=== PATIENT | female | born 1970 | race Hispanic/Latino ===

== ENCOUNTER → 2019-12-15 | Outpatient (CLI) | payer BC ==
[~2019-12-15] MED LIST: CEFAZOLIN SODIUM 1 GM VIAL IVP SCH
[2019-12-15 10:28] LABS: BASOPHILS % (AUTO) 0.8 % (0.0-5.0); EOSINOPHILS % (AUTO) 4.4 % (0.0-8.0); HEMATOCRIT 40.9 % (36-48); LYMPHOCYTES % (AUTO) 38.1 % (21.0-51.0); MEAN CORPUSCULAR HEMOGLOBIN 29.2 pg (27.0-33.0); MEAN CORPUSCULAR HGB CONC 32.5 g/dL (32.0-36.0); MEAN CORPUSCULAR VOLUME 89.7 fL (79-99); MONOCYTES % (AUTO) 7.3 % (3.0-13.0); NEUTROPHILS % (AUTO) 49.1 % (40.0-77.0); PLATELET COUNT (AUTO) 247 K/uL (130-400); RED BLOOD CELL COUNT(AUTO) 4.56 MIL/uL (4.00-5.50); RED CELL DISTRIBUTION WIDTH 12.8 % (11.0-15.5); WHITE BLOOD COUNT (AUTO) 5.9 K/uL (4.8-10.8)
[2019-12-15 10:39] LABS: APPEARANCE,URINE Cloudy (CLEAR); BILIRUBIN,URINE Small (NEGATIVE); COLOR,URINE Dark Yellow (YELLOW); GLUCOSE, URINE (UA) Negative (NEGATIVE); INR 0.97 (0.85-1.15); KETONES,URINE Trace mg/dL (NEGATIVE); LEUKOCYTE ESTERASE ,URINE Negative (NEGATIVE); NITRATE,URINE Negative (NEGATIVE); OCCULT BLOOD,URINE Negative (NEGATIVE); PARTIAL THROMBOPLASTIN TIME 32.1 SEC (26.3-35.5); PROTEIN,URINE Trace mg/dL (NEGATIVE); PROTHROMBIN TIME 10.5 SEC (9.6-11.6)
[2019-12-15 10:50] LABS: BACTERIA,URINE Rare /HPF (None Seen); HYALINE CASTS, URINE 0-1 /LPF (0-1 /LPF); MUCUS,URINE Moderate LPF (None Seen); RBC,URINE 0-1 /HPF (0-1); SQUAMOUS EPITHELIAL CELL,UR 0-2 /HPF (0-2); WBC,URINE 0-1 /HPF (0-1)
[2019-12-15 11:37] LABS: CREATININE 0.9 mg/dL (0.5-1.5); POTASSIUM 4.7 mmol/L (3.5-5.1)
--- NOTE | 2019-12-19 12:04 | NUR ---
INFECTION CONTROL-POSITIVE COVID ON 12/15/19. NOTIFIED PT ABOUT RESULT AND QUARANTINE PROCESS. LIVES WITH SISTER. PT HAD QUESTIONS ABOUT RE-REGISTERING AND GETTING A LETTER OR COPY OF RESULT. INFORMED HER TO CONTACT DAY PT REG. RE-REGISTERING PROCESS AND MEDICAL RECORDS FOR A COPY OF HER REPORT. *ADDED TO FACESHEET
== END | disposition home or self-care (01) ==
LOC: DAH 10:00 → EDSTATUS 11:00
PROVIDERS: ATTEND Orthopaedic Surgery
DX: U07.1 COVID-19 (principal); M25.551 Pain in right hip; M16.11 Unilateral primary osteoarthritis, right hip
CPT/HCPCS: 36415; 80048; 81001; 84703; 85025; 85610; 85730; 87641; U0003; J0690

== ENCOUNTER 2020-02-12 11:00 | Inpatient (IN) | payer BC ==
[~2020-02-12] VITALS: Ht 157.5 cm; Wt 106.6 kg
[2020-02-12 12:25] LABS: BASOPHILS % (AUTO) 0.8 % (0.0-5.0); EOSINOPHILS % (AUTO) 2.5 % (0.0-8.0); LYMPHOCYTES % (AUTO) 30.2 % (21.0-51.0); MEAN CORPUSCULAR HEMOGLOBIN 29.5 pg (27.0-33.0); MEAN CORPUSCULAR VOLUME 89.5 fL (79-99); MONOCYTES % (AUTO) 5.9 % (3.0-13.0); NEUTROPHILS % (AUTO) 60.3 % (40.0-77.0); PLATELET COUNT (AUTO) 266 K/uL (130-400); RED BLOOD CELL COUNT(AUTO) 4.47 MIL/uL (4.00-5.50); RED CELL DISTRIBUTION WIDTH 12.3 % (11.0-15.5); WHITE BLOOD COUNT (AUTO) 6.3 K/uL (4.8-10.8)
[2020-02-12 12:31] LABS: CREATININE 0.7 mg/dL (0.5-1.5); INR 0.93 (0.85-1.15); POTASSIUM 4.2 mmol/L (3.5-5.1); PROTHROMBIN TIME 10.1 SEC (9.6-11.6)
[2020-02-12 13:32] LABS: APPEARANCE,URINE Clear (CLEAR); BILIRUBIN,URINE Negative (NEGATIVE); COLOR,URINE Yellow (YELLOW); GLUCOSE, URINE (UA) Negative (NEGATIVE); KETONES,URINE Negative (NEGATIVE); LEUKOCYTE ESTERASE ,URINE Negative (NEGATIVE); NITRATE,URINE Negative (NEGATIVE); OCCULT BLOOD,URINE Negative (NEGATIVE); PROTEIN,URINE Negative (NEGATIVE); UROBILINOGEN,URINE 0.2 mg/dL (0.2-1.0)
[2020-02-16] MEDS ORDERED: ACET1TAB25 PO (09:09)
[2020-02-16] MEDS ORDERED: ZOLP5TAB8 PO (09:12)
[2020-02-16] MEDS ORDERED: CELE200C PO (09:12)
[2020-02-16] MEDS ORDERED: ESCI10TA54 PO (09:12)
[2020-02-19] VITALS (17 sets, daily range): BP systolic 105–164; BP diastolic 63–102
[2020-02-19] MEDS: CEFAZOLIN SODIUM 1 GM VIAL IVP SCH ×3 (09:45→20:23)
--- NOTE | 2020-02-19 09:45 | NUR ---
preop pt arrived via w/c pt in no distress at this time. pt oriented to bed and call light. will continue to monitor pt.
[2020-02-19] MEDS ORDERED: TRANEXAMIC ACID 1000MG/10ML ONE ×2 (12:28→17:13)
[2020-02-19] MEDS ORDERED: CEFAZOLIN SODIUM 1 GM VIAL ONE ×2 (12:28→20:23)
[2020-02-19] MEDS ORDERED: SUCCINYLCHOLINE CHLORIDE 20 MG/ML 10 ML VIAL ONE (13:08)
[2020-02-19] MEDS ORDERED: MIDAZOLAM HCL 1 MG/ML 2ML VIAL ONE (13:08)
[2020-02-19] MEDS ORDERED: PROPOFOL 10 MG/ML 20ML VIAL IV ONE (13:08)
[2020-02-19] MEDS ORDERED: LIDOCAINE PF 2% 5ML ABBOJECT ONE (13:08)
[2020-02-19] MEDS ORDERED: ROPIVACAINE 0.5% 5MG/ML 30ML IJ ONE (13:22)
[2020-02-19] MEDS ORDERED: ROCURONIUM 10MG/1ML SYR 10 MG/ML ML ONE ×3 (13:30→16:22)
[2020-02-19] MEDS ORDERED: EPHEDRINE SULFATE 50 MG/ML AMPULE ONE (14:08)
[2020-02-19] MEDS ORDERED: TRANEXAMIC ACID 1000MG/10ML IV ONE (14:20)
[2020-02-19] MEDS ORDERED: CEFAZOLIN SODIUM 1 GM VIAL IRRIG ONE (14:45)
[2020-02-19] MEDS ORDERED: FENTANYL CITRATE PF 50 MCG/1 ML 2ML VIAL ONE (15:08)
[2020-02-19] MEDS ORDERED: NEOSTIGMINE 5MG/5ML SYR IV ONE (16:04)
[2020-02-19] MEDS ORDERED: ONDANSETRON HCL 4 MG/2 ML VIAL ONE (16:04)
[2020-02-19] MEDS ORDERED: GLYCOPYRROLATE 1 MG/5 ML SYRINGE ONE (16:04)
[2020-02-19] MEDS ORDERED: OXYCODONE HCL 5 MG TAB PO PRN (16:15)
[2020-02-19] MEDS ORDERED: POTASSIUM CHLORIDE 20MEQ/100ML 100 ML IV PRN (16:15)
[2020-02-19] MEDS: ACETAMINOPHEN EXTRA STRENGTH 500 MG TABLET PO SCH ×2 (16:15→23:15)
[2020-02-19] MEDS ORDERED: FERROUS FUMARATE 324 MG TABLET PO PRN (16:15)
[2020-02-19] MEDS ORDERED: TEMAZEPAM 15 MG CAPSULE PO PRN (16:15)
[2020-02-19] MEDS ORDERED: POTASSIUM CHLORIDE 10% ELIXIR 20 MEQ/15 ML UDCUP PO PRN (16:15)
[2020-02-19] MEDS ORDERED: TRAMADOL HCL 50 MG TABLET PO PRN (16:15)
[2020-02-19] MEDS ORDERED: ONDANSETRON HCL 4 MG/2 ML VIAL IVP PRN (16:15)
[2020-02-19] MEDS ORDERED: POTASSIUM CHLORIDE 20 MEQ ERTAB PO PRN (16:15)
[2020-02-19] MEDS ORDERED: LIDOCAINE HCL-MPF 1% 2ML VIAL IV PRN (16:15)
[2020-02-19] MEDS ORDERED: DiphenhydrAMINE HCL 50 MG/ML VIAL IVP PRN (16:15)
[2020-02-19] MEDS ORDERED: MEPERIDINE-PF 25 MG/ML SYG ONE ×2 (17:14→17:32)
--- NOTE | 2020-02-19 17:38 | NUR ---
CM NOTE/MELVIN UNABLE TO MEET WITH PATIENT IN ROOM, NEXT OF KIN CALLED, SHILOH COWART. MELVIN COMPLETED FOR [facility] AND ANY DME IN NETWORK. PER FATHER, PATIENT LIVES ALONE AND OPEN TO PHYSICAL THERAPY AT FACILITY BUT NOT A SNF. FATHER EDUCATED ON INSURANCE/PT EVALUATION AND HOW THAT COULD PLAY A ROLE IN DISCHARGE PLANNING. CM TO FOLLOW UP.
[2020-02-19] MEDS: SODIUM CHLORIDE 0.9% 1000ML 1,000 ML IV SCH (18:10)
[2020-02-19] MEDS: KETOROLAC TROMETHAMINE 15MG/ML IV PRN (18:29)
[2020-02-19] MEDS ORDERED: ZOLPIDEM TARTRATE 5 MG TAB PO PRN (18:45)
[2020-02-19] MEDS: CELECOXIB 200 MG CAP PO SCH (20:21)
[2020-02-19] MEDS: FAMOTIDINE 20MG TAB 20 MG TAB PO SCH (20:21)
[2020-02-19] MEDS: OXYCODONE HCL 5 MG TAB PO PRN (20:21)
[2020-02-19] MEDS: PREGABALIN 25 MG CAP PO SCH (20:21)
[2020-02-19] MEDS: HYDROMORPHONE 1 MG/1 ML AMP IVP PRN (21:20)
--- NOTE | 2020-02-19 23:00 | NUR ---
ACTIVITY PATIENT ASSISTED TO EDGE OF BED TO DANGLE LEGS PER ORDERS. PATIENT TOLERATED WELL AND THEN WAS ASSISTED BACK TO BED.
[2020-02-20] VITALS (7 sets, daily range): BP systolic 88–135; BP diastolic 51–76
[2020-02-20] MEDS: HYDROMORPHONE 1 MG/1 ML AMP IVP PRN ×8 (00:17→23:04)
--- NOTE | 2020-02-20 02:00 | NUR ---
VOID PATIENT VOIDING BUT ONLY SMALL AMOUNT AT A TIME, AND IS COMPLAINING OF LOWER ABD PAIN. SHE ALSO FEELS LIKE HER BLADDER IS FULL. PATIENT WAS THEN SCANNED BY THE BLADDER SCANNER TO SHOW ONLY 350MLS OF URINE. I OFFERED TO STRAIGHT CATHETERIZE HER BUT SHE STATED SHE WOULD JUST WAIT FOR PT IN AM TO GET HER UP TO RESTROOM.
[2020-02-20] MEDS: SODIUM CHLORIDE 0.9% 1000ML 1,000 ML IV SCH ×2 (02:26→12:11)
[2020-02-20 03:39] LABS: HEMATOCRIT 27.5 % (36-48); MEAN CORPUSCULAR HEMOGLOBIN 29.8 pg (27.0-33.0); MEAN CORPUSCULAR HGB CONC 33.5 g/dL (32.0-36.0); RED BLOOD CELL COUNT(AUTO) 3.09 MIL/uL (4.00-5.50); RED CELL DISTRIBUTION WIDTH 12.6 % (11.0-15.5); WHITE BLOOD COUNT (AUTO) 10.1 K/uL (4.8-10.8)
[2020-02-20 03:52] LABS: CREATININE 0.8 mg/dL (0.5-1.5); POTASSIUM 4.2 mmol/L (3.5-5.1)
[2020-02-20] MEDS: CEFAZOLIN SODIUM 1 GM VIAL IVP SCH (05:05)
[2020-02-20] MEDS: OXYCODONE HCL 5 MG TAB PO PRN ×3 (07:39→21:06)
[2020-02-20] MEDS: ACETAMINOPHEN EXTRA STRENGTH 500 MG TABLET PO SCH ×2 (08:15→16:54)
[2020-02-20] MEDS: KETOROLAC TROMETHAMINE 15MG/ML IV PRN (08:37)
--- NOTE | 2020-02-20 09:55 | NUR ---
DCP CM met with pt discussed dc plans. Pt is independent prior to surgery, lives at home alone, father lives close by. Pt has a front wheel walker, toilet riser, old cane, shower chair. Denies any other equipments/services. Feels safe to go back home, still works and drives. Agreeable to go to short term rehab first prior to dc home as she lives alone, consent signed for Any IRU and DME. DC plan to IRU vs HH. CM to cont to follow up. Addendum: 02/20/20 at 1656 by INGRID TIPTON LVN CM Amended: Links added.
[2020-02-20] MEDS: PREGABALIN 25 MG CAP PO SCH ×2 (09:57→19:30)
[2020-02-20] MEDS: CELECOXIB 200 MG CAP PO SCH ×2 (09:58→19:30)
[2020-02-20] MEDS: CITALOPRAM 20 MG TABLET PO SCH (09:59)
[2020-02-20] MEDS: APIXABAN 2.5 MG TABLET PO SCH ×2 (09:59→19:29)
[2020-02-20] MEDS: FAMOTIDINE 20MG TAB 20 MG TAB PO SCH ×2 (10:00→19:29)
[2020-02-20] MEDS: CALCIUM CARBONATE 500 MG TABLET PO PRN ×2 (10:00→19:29)
[2020-02-20] MEDS: POLYETHYLENE GLYCOL 3350 17 GM POWD.PACK PO SCH (10:01)
--- NOTE | 2020-02-20 11:00 | NUR ---
CM Note: [facility] closed, forwarded request to [facility] CM spoke to Myah Alexander [facility] Director, facility temporarily still close at this time, will inform CM once unit reopens. Pt made aware, agreeable for plan B STR, consent signed. Faxed order, clinicals, PT, covid result. confirmation received. Spoke to Maria Luisa w/STR, made aware dcp tomorrow. Pending Dr Lee to sign covid transfer form, will send once available. EMS filled out, pending to be faxed w/current date, primary nurse to call [facility] once pt ready to DC. MOT semi-filled pending to be completed once approval received. CM informed Dr Lee of the above.
[2020-02-21] MEDS: ACETAMINOPHEN EXTRA STRENGTH 500 MG TABLET PO SCH ×3 (00:15→16:15)
[2020-02-21] MEDS: HYDROMORPHONE 1 MG/1 ML AMP IVP PRN ×8 (00:15→22:54)
[2020-02-21] MEDS: OXYCODONE HCL 5 MG TAB PO PRN ×2 (02:43→20:41)
[2020-02-21 04:00] VITALS: BP 114/54
[2020-02-21 08:12] VITALS: BP 96/48
[2020-02-21] MEDS: CITALOPRAM 20 MG TABLET PO SCH (09:38)
[2020-02-21] MEDS: APIXABAN 2.5 MG TABLET PO SCH ×2 (09:38→19:48)
[2020-02-21] MEDS: POLYETHYLENE GLYCOL 3350 17 GM POWD.PACK PO SCH (09:38)
[2020-02-21] MEDS: CELECOXIB 200 MG CAP PO SCH ×2 (09:38→19:48)
[2020-02-21] MEDS: FAMOTIDINE 20MG TAB 20 MG TAB PO SCH ×2 (09:38→19:48)
[2020-02-21] MEDS: PREGABALIN 25 MG CAP PO SCH ×2 (09:38→19:47)
[2020-02-21 10:02] LABS: HEMATOCRIT 25.7 % (36-48)
[2020-02-21 11:17] VITALS: BP 101/57
[2020-02-21] MEDS: KETOROLAC TROMETHAMINE 15MG/ML IV PRN (11:17)
[2020-02-21 11:27] LABS: BASOPHILS % (AUTO) 0.3 % (0.0-5.0); EOSINOPHILS % (AUTO) 0.3 % (0.0-8.0); LYMPHOCYTES % (AUTO) 15.9 % (21.0-51.0); MEAN CORPUSCULAR HEMOGLOBIN 29.8 pg (27.0-33.0); MEAN CORPUSCULAR HGB CONC 32.8 g/dL (32.0-36.0); MEAN CORPUSCULAR VOLUME 90.9 fL (79-99); MONOCYTES % (AUTO) 6.5 % (3.0-13.0); NEUTROPHILS % (AUTO) 76.7 % (40.0-77.0); PLATELET COUNT (AUTO) 169 K/uL (130-400); RED BLOOD CELL COUNT(AUTO) 2.85 MIL/uL (4.00-5.50); RED CELL DISTRIBUTION WIDTH 12.9 % (11.0-15.5); WHITE BLOOD COUNT (AUTO) 11.5 K/uL (4.8-10.8)
--- NOTE | 2020-02-21 15:00 | NUR ---
CM Note: STR approval, pending bed CM spoke to [facility] w/STR, pt has approval, currently does not have bed available. Pending bed at this time. MOT filled out, pending house super to sign. EMS filled out pending to be faxed w/current date. Covid transfer form send, and received. Primary nurse aware. Dr Lee made aware. CM to cont to follow up.
[2020-02-21 15:40] VITALS: BP 121/52
[2020-02-21 20:00] VITALS: BP 107/52
[2020-02-21 23:51] VITALS: BP 102/53
[2020-02-22] MEDS: HYDROMORPHONE 1 MG/1 ML AMP IVP PRN ×6 (00:20→06:01)
[2020-02-22] MEDS: ACETAMINOPHEN EXTRA STRENGTH 500 MG TABLET PO SCH ×4 (00:21→23:51)
[2020-02-22] MEDS: OXYCODONE HCL 5 MG TAB PO PRN (00:54)
[2020-02-22 04:00] VITALS: BP 114/53
[2020-02-22 08:20] VITALS: BP 129/66
[2020-02-22] MEDS: CITALOPRAM 20 MG TABLET PO SCH (08:31)
[2020-02-22] MEDS: FAMOTIDINE 20MG TAB 20 MG TAB PO SCH ×2 (08:31→21:26)
[2020-02-22] MEDS: POLYETHYLENE GLYCOL 3350 17 GM POWD.PACK PO SCH (08:31)
[2020-02-22] MEDS: APIXABAN 2.5 MG TABLET PO SCH ×2 (08:33→21:25)
[2020-02-22] MEDS: CELECOXIB 200 MG CAP PO SCH ×2 (08:33→21:25)
[2020-02-22] MEDS: PREGABALIN 25 MG CAP PO SCH ×2 (08:33→21:26)
[2020-02-22] MEDS ORDERED: LACTULOSE 20 GM/30 ML UDCUP PO PRN (08:45)
[2020-02-22 11:35] VITALS: BP 98/47
--- NOTE | 2020-02-22 15:00 | NUR ---
CM Note: STR pending bed CM spoke to Maria Luisa w/STR, still currently pending bed. Verbalized there is a possible late dc today, tomorrow there are 3 discharges for sure and will have bed available for pt. Pt agreeable for other IRU facility, as per Gabriele w/[facility] they have bed available today, but even if rep send request to insurance it will most likely not have auth for their facility until possible tomorrow-Wednesday. Dr Lee updated, agreeable to wait for bed w/STR for tomorrow. Primary nurse aware. CM to cont to follow up.
[2020-02-22] MEDS ORDERED: BISACODYL 10 MG SUPP.RECT RC PRN (16:15)
[2020-02-22 16:39] VITALS: BP 97/61
--- NOTE | 2020-02-22 18:00 | NUR ---
covid swab for pcr collected and sent to lab.
[2020-02-22 20:08] VITALS: BP 78/44
[2020-02-23 00:08] VITALS: BP 97/52
[2020-02-23 04:08] VITALS: BP 97/52
[2020-02-23] MEDS: OXYCODONE HCL 5 MG TAB PO PRN (04:59)
[2020-02-23 08:21] VITALS: BP 114/61
[2020-02-23] MEDS: CELECOXIB 200 MG CAP PO SCH ×2 (08:32→19:22)
[2020-02-23] MEDS: FAMOTIDINE 20MG TAB 20 MG TAB PO SCH ×2 (08:32→19:22)
[2020-02-23] MEDS: ACETAMINOPHEN EXTRA STRENGTH 500 MG TABLET PO SCH ×2 (08:32→16:15)
[2020-02-23] MEDS: CITALOPRAM 20 MG TABLET PO SCH (08:32)
[2020-02-23] MEDS: APIXABAN 2.5 MG TABLET PO SCH ×2 (08:33→19:22)
[2020-02-23] MEDS: POLYETHYLENE GLYCOL 3350 17 GM POWD.PACK PO SCH (08:33)
[2020-02-23] MEDS: PREGABALIN 25 MG CAP PO SCH ×2 (08:33→19:22)
[2020-02-23 11:07] VITALS: BP 83/50
--- NOTE | 2020-02-23 12:16 | NUR ---
DC PLAN SPOKE TO KSENIA SAUCEDA SAID THAT PATIENT OKAY TO GO. BED AVAILABLE. DID NOT NEED TO WAIT FOR NEW COVID TEST. LET NURSE KNOW. LET DR. LEE KNOW SAID OKAY FOR PATIENT TO TRANSFER. MOT SIGNED IN CHART. EMS SET UP FOR PATIENT NEAREST AVAILABLE BED AVAILABLE. Addendum: 02/23/20 at 1220 by DONNA PAYNE RN CM Amended: Links added.
[2020-02-23 13:57] VITALS: BP 104/50
--- NOTE | 2020-02-23 14:00 | NUR ---
CALLED REPORT TO [facility]. NURSE WILL CALL ME BACK.
--- NOTE | 2020-02-23 16:00 | NUR ---
DISCHARGE INSTRUCTIONS GIVEN TO PATIENT ON PRESCRIBED MEDICATIONS, DME, WBAT. NURSE KSENIA FROM [facility]. VERBALIZED UNDERSTANDING OF ALL EDUCATION GIVEN VIA TEACH BACK. NO DISTRESS NOTED. NO CONCERNS VOICED. STEVE DRESSING CHANGED LAST NIGHT. TO BE REMOVED ON 02/26/20. WAITING ON EMS TO COME AND SUPERVISOR PARKING LOT PATIENT.
[2020-02-23 20:01] VITALS: BP 105/62
--- NOTE | 2020-02-23 20:55 | NUR ---
discharge discharge to [facility] VIA EMS
== END 2020-02-23 20:55 | disposition home or self-care (01) | DRG 470 ==
LOC: EDSTATUS 11:00 → DAHIP 02-19 08:00 → 3AH 02-19 18:18
PROVIDERS: ADMIT Orthopaedic Surgery; ATTEND Orthopaedic Surgery
PROC: 0SR90JZ Replacement of Right Hip Joint with Synthetic Substitute, Open Approach (ICD-10-PCS; principal; 2020-02-19 13:20)
DX: M16.11 Unilateral primary osteoarthritis, right hip (principal); D62 Acute posthemorrhagic anemia; Z68.41 Body mass index [BMI] 40.0-44.9, adult; E66.9 Obesity, unspecified; I95.1 Orthostatic hypotension; M06.9 Rheumatoid arthritis, unspecified; Z83.3 Family history of diabetes mellitus; Z96.651 Presence of right artificial knee joint; Z20.828 Contact with and (suspected) exposure to other viral communicable diseases; I95.9 Hypotension, unspecified
CPT/HCPCS: 36415; 73503; 80048; 81003; 84703; 85014; 85018; 85025; 85027; 85610; 87641; 97039; C1776; G0378; J0330; J0690; J1170; J1885; J2001; J2175; J2250; J2405; J2704; J2710; J2795; J3010; J3490; J7030; J7120; U0003